=== PATIENT | male | born 1960 | race Caucasian/White ===

== ENCOUNTER 2016-11-28 10:00 | Outpatient (CLI) | payer OTHER ==
[~2016-11-28] VITALS: Ht 177.8 cm; Wt 102.1 kg
[~2016-11-28 10:00] MED LIST: NO MEDICATIONS; NS 1,000 ML IV ONE
[2016-11-28] MEDS ORDERED: LIDOCAINE 2% INJ 100 MG/5 ML SDV (FOR ANES.) As Ordered ONE (10:03)
[2016-11-28] MEDS ORDERED: PROPOFOL 500 MG/50 ML VIAL As Ordered ONE (10:03)
[2016-11-28] MEDS ORDERED: ALEV220C2 PO (10:14)
--- NOTE | 2016-11-28 11:03 | ROOR ---
Patient Name: Adalberto Rahman Procedure Date: 11/28/2016 10:46 AM Date of : 1960 Age: 56 Room: [facility] Gender: Male Note Status: Finalized Procedure: Upper GI endoscopy + Balloon Dilatation + Biopsies Indications: Dysphagia, Heartburn Providers: Jayden Richards MD Referring MD: JHONATAN CURRIE JR, MD Requesting Provider: Medicines: Monitored Anesthesia Care Complications: No immediate complications. Procedure: Pre-Anesthesia Assessment: - The heart rate, respiratory rate, oxygen saturations, blood pressure, adequacy of pulmonary ventilation, and response to care were monitored throughout the procedure. The Endoscope was introduced through the mouth, and advanced to the second part of duodenum. The upper GI endoscopy was accomplished without difficulty. The patient tolerated the procedure well. Findings: The Z-line was regular and was found 40 cm from the incisors. A non-obstructing Schatzki ring (acquired) was found at the gastroesophageal junction. A TTS dilator was passed through the scope. Dilation with an 18-19-20 mm balloon dilator was performed to 20 mm. Biopsies were taken with a cold forceps for histology. A small hiatal hernia was present. No other significant abnormalities were identified in a careful examination of the stomach. The exam of the duodenum was otherwise normal. Impression: - Z-line regular, 40 cm from the incisors. - Non-obstructing Schatzki ring. Dilated. Biopsied. - Small hiatal hernia. - The examination was otherwise normal. Recommendation: - Await pathology results. - Discharge patient to home. - Follow an antireflux regimen. - Telephone GI clinic for pathology results in 1 week. - Check Portal Online for Path Results.([email or web address]) - Continue present medications. - The findings and recommendations were discussed with the patient's family. Jayden Richards MD Jayden Richards MD 11/28/2016 11:03:04 AM This report has been signed electronically. Number of Addenda: 0 Note Initiated On: 11/28/2016 10:46 AM Estimated Blood Loss: Estimated blood loss: none.
--- NOTE | 2016-11-28 11:18 | ROOR ---
Patient Name: Adalberto Rahman Procedure Date: 11/28/2016 10:47 AM Date of : 1960 Age: 56 Room: [facility] Gender: Male Note Status: Finalized Procedure: Total Colonoscopy to cecum + Biopsy Polypectomy Indications: High risk colon cancer surveillance: Personal history of colonic polyps Providers: Jayden Richards MD Referring MD: JHONATAN CURRIE JR, MD Requesting Provider: Medicines: Monitored Anesthesia Care Complications: No immediate complications. Procedure: Pre-Anesthesia Assessment: - The heart rate, respiratory rate, oxygen saturations, blood pressure, adequacy of pulmonary ventilation, and response to care were monitored throughout the procedure. The Colonoscope was introduced through the anus and advanced to the cecum, identified by appendiceal orifice and ileocecal valve. The colonoscopy was performed without difficulty. The patient tolerated the procedure well. The quality of the bowel preparation was good. Findings: The perianal and digital rectal examinations were normal. Non-bleeding internal hemorrhoids were found during retroflexion. The hemorrhoids were small and Grade I (internal hemorrhoids that do not prolapse). Multiple small and large-mouthed diverticula were found in the recto-sigmoid colon, sigmoid colon and descending colon. A small polyp was found in the mid ascending colon. The polyp was sessile. The polyp was removed with a jumbo cold forceps. Resection and retrieval were complete. A small polyp was found in the rectum. The polyp was sessile. The polyp was removed with a jumbo cold forceps. Resection and retrieval were complete. The exam was otherwise without abnormality on direct and retroflexion views. Impression: - Non-bleeding internal hemorrhoids. - Diverticulosis in the recto-sigmoid colon, in the sigmoid colon and in the descending colon. - One small polyp in the mid ascending colon, removed with a jumbo cold forceps. Resected and retrieved. - One small polyp in the rectum, removed with a jumbo cold forceps. Resected and retrieved. - The examination was otherwise normal on direct and retroflexion views. - The exam was otherwise normal to the cecum. Recommendation: - Patient has a contact number available for emergencies. The signs and symptoms of potential delayed complications were discussed with the patient. Return to normal activities tomorrow. Written discharge instructions were provided to the patient. - High fiber diet. - Discharge patient to home. - Continue present medications. - Await pathology results. - Telephone GI clinic for pathology results in 1 week. - Repeat colonoscopy in 5 years for surveillance based on pathology results. - Return to referring physician. - The findings and recommendations were discussed with the patient's family. Jayden Richards MD Jayden Richards MD 11/28/2016 11:18:05 AM This report has been signed electronically. Number of Addenda: 0 Note Initiated On: 11/28/2016 10:47 AM Estimated Blood Loss: Estimated blood loss: none.
[2016-11-28 11:50] VITALS: BP 122/82
== END 2016-11-28 12:00 | disposition home or self-care (01) ==
LOC: M OPP 10:00
PROVIDERS: ATTEND Internal Medicine Gastroenterology
DX: Z12.11 Encounter for screening for malignant neoplasm of colon (principal); Z86.010 Personal history of colon polyps; D12.2 Benign neoplasm of ascending colon; K62.1 Rectal polyp; K64.0 First degree hemorrhoids; K57.30 Diverticulosis of large intestine without perforation or abscess without bleeding; R13.10 Dysphagia, unspecified; R12 Heartburn; K22.2 Esophageal obstruction; K44.9 Diaphragmatic hernia without obstruction or gangrene; R06.83 Snoring; Z85.828 Personal history of other malignant neoplasm of skin; Z80.3 Family history of malignant neoplasm of breast

== ENCOUNTER → 2019-11-08 | Outpatient (CLI) | payer OTHER ==
[~2019-11-08] MED LIST changes: +ALEV220C2 PO; -NS 1,000 ML IV ONE; +OMEP1CAP73 PO
== END ==
LOC: M LABSMTC 10:04
PROVIDERS: ATTEND Anesthesiology
DX: Z01.812 Encounter for preprocedural laboratory examination (principal); Z20.828 Contact with and (suspected) exposure to other viral communicable diseases
CPT/HCPCS: C9803; U0003

== ENCOUNTER 2019-11-13 09:06 | Day surgery (SDC) | payer OTHER ==
[~2019-11-13] VITALS: Ht 177.8 cm; Wt 105.7 kg
[~2019-11-13 09:06] MED LIST changes: +LIDOCAINE 2% 100MG/5ML SDV (FOR ANES.) As Ordered ONE; +NS 1,000 ML IV ONE; -OMEP1CAP73 PO; +propofoL 200 MG/20 ML VIAL As Ordered ONE
[2019-11-13] MEDS ORDERED: OMEP1CAP73 PO (11:54)
[2019-11-13] MEDS ORDERED: propofoL 200 MG/20 ML VIAL As Ordered ONE (13:07)
[2019-11-13 13:30] VITALS: BP 139/88
--- NOTE | 2019-11-18 11:38 | ROOR ---
Patient Name: Adalberto Rahman Procedure Date: 11/13/2019 12:52 PM Date of : 1960 Age: 59 Room: [facility] Gender: Male Note Status: Finalized Procedure: Upper GI endoscopy Indications: Heartburn, Follow-up of Bhagat's esophagus Providers: Jacobo Hernandez MD Referring MD: JHONATAN CURRIE JR, MD Requesting Provider: Medicines: Monitored Anesthesia Care Complications: No immediate complications. Procedure: Pre-Anesthesia Assessment: - Prior to the procedure, a History and Physical was performed, and patient medications and allergies were reviewed. The patient is competent. The risks and benefits of the procedure and the sedation options and risks were discussed with the patient. All questions were answered and informed consent was obtained. Patient identification and proposed procedure were verified by the physician, the nurse and the anesthesiologist in the procedure room. Mental Status Examination: alert and oriented. Airway Examination: normal oropharyngeal airway and neck mobility. Respiratory Examination: clear to auscultation. CV Examination: normal. Prophylactic Antibiotics: The patient does not require prophylactic antibiotics. Prior Anticoagulants: The patient has taken no previous anticoagulant or antiplatelet agents. ASA Grade Assessment: II - A patient with mild systemic disease. After reviewing the risks and benefits, the patient was deemed in satisfactory condition to undergo the procedure. The anesthesia plan was to use monitored anesthesia care (MAC). Immediately prior to administration of medications, the patient was re-assessed for adequacy to receive sedatives. The heart rate, respiratory rate, oxygen saturations, blood pressure, adequacy of pulmonary ventilation, and response to care were monitored throughout the procedure. The physical status of the patient was re-assessed after the procedure. The Endoscope was introduced through the mouth, and advanced to the second part of duodenum. The upper GI endoscopy was accomplished without difficulty. The patient tolerated the procedure well. Findings: LA Grade A (one or more mucosal breaks less than 5 mm, not extending between tops of 2 mucosal folds) esophagitis with no bleeding was found in the distal esophagus. Biopsies were taken with a cold forceps for histology. Verification of patient identification for the specimen was done by the physician and nurse using the patient's name, date and medical record number. Estimated blood loss was minimal. A widely patent and mild Schatzki ring was found in the distal esophagus. Biopsies were taken with a cold forceps for histology. A small hiatal hernia was present. Scattered mild inflammation characterized by erythema and granularity was found in the gastric antrum. Biopsies were taken with a cold forceps for Helicobacter pylori testing. The duodenal bulb and second portion of the duodenum were normal. Impression: - LA Grade A reflux esophagitis. Biopsied. - Widely patent and mild Schatzki ring. Biopsied. - Small hiatal hernia. - Gastritis. Biopsied. - Normal duodenal bulb and second portion of the duodenum. Recommendation: - Patient has a contact number available for emergencies. The signs and symptoms of potential delayed complications were discussed with the patient. Return to normal activities tomorrow. Written discharge instructions were provided to the patient. - High fiber diet. - Continue present medications. - Follow an antireflux regimen. - Await pathology results. - Telephone GI clinic for pathology results in 2 weeks. - Return to primary care physician. Jacobo Hernandez MD Jacobo Hernandez MD 11/13/2019 1:15:44 PM Electronically signed by Jacobo Hernandez MD Number of Addenda: 0 Note Initiated On: 11/13/2019 12:52 PM Estimated Blood Loss: Estimated blood loss was minimal.
== END 2019-11-13 13:44 | disposition home or self-care (01) ==
LOC: M OPP 09:06
PROVIDERS: ATTEND Internal Medicine Gastroenterology
DX: K22.2 Esophageal obstruction (principal); K44.9 Diaphragmatic hernia without obstruction or gangrene; K29.70 Gastritis, unspecified, without bleeding; K22.70 Barrett's esophagus without dysplasia; R12 Heartburn; K21.0 Gastro-esophageal reflux disease with esophagitis

== ENCOUNTER → 2020-04-15 | Outpatient (REF) | payer OTHER ==
[~2020-04-15] MED LIST changes: -LIDOCAINE 2% 100MG/5ML SDV (FOR ANES.) As Ordered ONE; -NS 1,000 ML IV ONE; +OMEP1CAP73 PO; -propofoL 200 MG/20 ML VIAL As Ordered ONE
[2020-04-15 14:34] LABS: CHLAMYDIA DNA AMPLIFICATION NEGATIVE (NEGATIVE); GC DNA AMPLIFICATION NEGATIVE (NEGATIVE)
== END ==
LOC: M LAB REF 12:02
PROVIDERS: ATTEND Physician Assistant Medical
DX: N49.2 Inflammatory disorders of scrotum (principal); R30.0 Dysuria

== ENCOUNTER → 2020-04-18 | Outpatient (CLI) | payer OTHER ==
--- NOTE | 2020-04-18 16:07 | REP ---
INDICATION: INFLAMMATION OF RT SCROTUM, DSYURIA COMPARISON: None. TECHNIQUE: Rahman scale and color Doppler evaluation using linear and curved array transducer with color Doppler evaluation. FINDINGS: A large septated right hydrocele versus epididymal cyst with floating debris noted. The right testicle is normal in appearance and vascularity without intratesticular mass lesion, infectious/inflammatory process, or torsion. No right hydroceles noted. Right testicle measures 4.6 x 2.5 x 2.7 cm. The left testicle and epididymis are normal. Early left-sided varicoceles measure up to approximately 3.5 mm diameter. No hydrocele. Left testicle measures 4.6 x 2.3 x 2.8 cm IMPRESSION: 1. Large complex collection in the right hemiscrotum likely representing hydrocele versus epididymal cyst. 2. Small early left-sided varicoceles. 3. Normal appearance of the bilateral testicles. <Electronically signed by Tai Sierra > 04/18/20 [id number]
== END ==
LOC: M RAD 09:51
PROVIDERS: ATTEND Physician Assistant Medical
DX: N49.2 Inflammatory disorders of scrotum (principal)

== ENCOUNTER → 2020-08-31 | Outpatient (CLI) | payer OTHER ==
--- NOTE | 2020-08-31 08:14 | REP ---
INDICATION: CHOLESTEROLOSIS OF GALLBLADDER. COMPARISON: Comparison study September 01, 2019. Comparison is also made with the August 20, 2018 prior study.. TECHNIQUE: Right upper quadrant sonography. FINDINGS: Scanning through the right upper quadrant of the abdomen demonstrates a 1.1 x 1.0 x 0.9 cm echogenic structure in the gallbladder lumen without acoustic shadowing unchanged from prior study of 2019 and consistent with a stable gallbladder polyp. No gallstone is seen. Gallbladder lumen is otherwise anechoic. Gallbladder wall is not visibly thickened. Common bile duct is normal measuring 0.5 cm in greatest diameter. No focal liver lesion is seen. Mild increased echogenicity is seen in the liver which may reflect fatty infiltration. Limited views of pancreas show no abnormality. There is a 0.7 cm cyst in the upper pole the right kidney and subcentimeter peripelvic cysts are suspected in the right kidney. No renal mass or hydronephrosis is seen. Normal caliber aorta. No evidence of ascites.. IMPRESSION: Stable 1.1 cm gallbladder polyp again seen unchanged from the 2019 prior study. Normal CBD. Question mild fatty infiltration of the liver. Small cysts right kidney.. <Electronically signed by Shiv Guardado > 08/31/20 [id number]
== END ==
LOC: M RAD 07:00
PROVIDERS: ATTEND Internal Medicine
DX: K82.4 Cholesterolosis of gallbladder (principal); Q61.02 Congenital multiple renal cysts

== ENCOUNTER → 2023-09-23 | Outpatient (CLI) | payer OTHER ==
[~2023-09-23] MED LIST changes: +TAMS1CAP17 PO
== END ==
LOC: M RAD 10:53
PROVIDERS: ATTEND Internal Medicine
DX: K76.0 Fatty (change of) liver, not elsewhere classified (principal)